=== PATIENT | female | born 1980 ===

== ENCOUNTER 2020-04-07 12:18 | Inpatient (IN) | payer OTHER ==
[~2020-04-07] VITALS: Ht 170.2 cm; Wt 98.4 kg
[2020-05-05] MEDS ORDERED: ASPIRIN81 MG PO (09:54)
[2020-05-05] MEDS ORDERED: PRENATAL CAPLE1 EAC1 PO (09:54)
== END 2020-05-07 14:14 | disposition home or self-care (01) | DRG 807 ==
LOC: OB/GYN 05-05 06:58 → LDR 05-05 06:58 → OB/GYN 05-05 14:57
PROVIDERS: ADMIT Obstetrics & Gynecology; ATTEND Obstetrics & Gynecology
PROC: 10E0XZZ Delivery of Products of Conception, External Approach (ICD-10-PCS; principal; 2020-05-05)
PROC: 0KQM0ZZ Repair Perineum Muscle, Open Approach (ICD-10-PCS; 2020-05-05)
PROC: 0W8NXZZ Division of Female Perineum, External Approach (ICD-10-PCS; 2020-05-05)
PROC: 10907ZC Drainage of Amniotic Fluid, Therapeutic from Products of Conception, Via Natural or Artificial Opening (ICD-10-PCS; 2020-05-05)
PROC: 3E033VJ Introduction of Other Hormone into Peripheral Vein, Percutaneous Approach (ICD-10-PCS; 2020-05-05)
PROC: 4A1HXFZ Monitoring of Products of Conception, Cardiac Rhythm, External Approach (ICD-10-PCS; 2020-05-05)
DX: O70.1 Second degree perineal laceration during delivery (principal); Z37.0 Single live birth; Z3A.39 39 weeks gestation of pregnancy; Z20.828 Contact with and (suspected) exposure to other viral communicable diseases